=== PATIENT | female | born 1955 | race Caucasian/White ===

== ENCOUNTER 2023-08-07 12:23 | Emergency (ER) | payer MEDICARE, SELFPAY ==
[2023-08-07 12:36] VITALS: BP 171/98
--- NOTE | 2023-08-07 13:49 | ED.MUSCINJ ---
HPI-Injury
General
Chief Complaint: Musculo-Skeletal Complaint
Source: patient
Exam Limitations: none
Time Seen by Provider: 08/07/23 13:17
Nursing documentation reviewed up to this point in time: agreed with
Travel History
Have you had any contact with someone who has COVID-19?: No
Do you have any symptoms of coronavirus? Fever > 100 degrees, chills, cough, shortness of breath, sore throat, loss of taste or smell, muscle aches, or headache?: No
History of Present Illness-Injury
Is this injury a work related problem?: No
Is pt an associate of [facility]?: No
Initial Injury comments:
Patient states she fell approx 5ft off a ladder while powerwashing. Fell into her garden. Reports twisting and landing wrong on RLE. Unable to get self up. Unable to put weight on her RLE. Pain to right knee. Injury occurred yesterday. Brought
to ED by spouse for eval.
Past History
Past History
ED Past Medical History: GERD and Psychiatric (Anxiety)
ED Past Surgical History: Gynecological (Hysterectomy) and Tonsilectomy
Social History
Tobacco: Non-smoker
Alcohol: None
Personal:
Living: with family
Employment: Employed
Family History
Family History: Other (father with CHF); Negative Early CAD
Review of Systems
Review of Systems
Allergies reviewed?: Yes
All Other Systems: ROS reviewed and negative except as documented in HPI and ROS
Constitutional: Reports no symptoms
Musculoskeletal: Reports joint pain (Pain and swelling to right knee)
Skin: Reports no symptoms
Neurological: Reports no symptoms
Psychiatric: Reports no symptoms
Musculoskeletal Injury Exam
Musculoskeletal Injury Exam
Right Knee:
Pain with Movement?: Moderate
Tender to palpation?: Moderate
Soft tissue swelling?: Moderate
External deformity and angulation?: None
Joint effusion?: None
Contusion?: None
Hematoma-local bleeding into tissue?: None
Strain- Sprain- Tear (Connective tissue injury)?: Moderate
Crepitus with movement?: No
Joint instability?: No
Malalignment/deformity?: No
Range of motion: Limited
Distal skin color and temperature: normal-warm & good color
Capillary Refill: normal
Normal distal neurovascular exam?: Yes
Phy Exam
General Physical Exam
General Presentation: well appearing and no apparent distress
General age: appears stated age
General Skin: warm and dry
General Habitus: normal
General Mental: alert
General Hydration: appears well hydrated
Musculoskeletal Exam
Musculoskeletal Exam: neuro vasc intact and other (Pain and swelling to right knee. No evidence of tendon injury. No pain to joints above and below knee.)
Skin Exam
Skin Exam: normal color, warm/dry and no rash
Psychiatric Exam
Psychiatric Exam: normal mood/affect
Injury Course
Orders/Labs/Results
Orders:
Orders
08/07/23 12:39
Knee, Right 4 or More Views [CR Knee- Right 4 Or More View*] Urgent
Comment:
Reason For Exam: pain
08/07/23 13:46
Knee Immobilizer Right-Treatme ONCE
*Radiology
Radiology exam reviewed: preliminary read by ED provider (No fx)
*Critical Care Note
Total Time (30-74mins, 75-104mins- exclusive of procedures): Not Applicable
ED Attending Note
-
Portions of this chart may have been created with voice recognition software.� Occasional wrong word or��sound alike� substitutions may have occurred due to the inherent limitations of voice recognition software.
Discharge Plan
Departure
Patient Disposition: Home (Routine Discharge)
Date of Disposition: 08/07/23
Time of Disposition: 13:47
Patient with high blood pressure during this ER visit?: No
Condition: Good
Covid-19: Not Applicable
Discharge Problem:
Knee sprain
Instructions: How to Use Crutches, Knee Immobilizer (DC), Knee Sprain (DC), Ibuprofen, Using Cold for Pain
Prescriptions:
No Action
multivitamin [Daily Multiple] 1 EACH tablet
1 ea PO DAILY
paroxetine HCl 20 MG tablet
20 mg PO HS
lorazepam [Ativan] 1 MG tablet
1 mg PO PRN (Reason: as needed)
red yeast rice 600 MG capsule
600 mg PO DAILY
Coq-10
DAILY
Vitamin D
DAILY
Referrals:
Stefano Gómez DO [Active] - Call in 1-3 days for appt
Gayla Pringle MD [Family Provider] -
Interventions
Interventions:
*Risk Screen - Suicide Last Done: 08/07/23 12:36
*General Assessment Last Done: 08/07/23 12:36
*Neglect/Abuse Screening Last Done: 08/07/23 12:36
*ED COVID-19 Vaccine History Last Done: 08/07/23 12:36
Discharge Date and Time
Print Language: CROATIAN
[2023-08-07] MEDS: MOTRIN 600 MG PO (14:14)
== END 2023-08-07 14:39 | disposition home or self-care (01) ==
LOC: EMR 12:23
PROVIDERS: EMERGENCY PHYSICIAN Emergency Medicine; FAMILY PHYSICIAN Internal Medicine
DX: S83.91XA Sprain of unspecified site of right knee, initial encounter (principal); W11.XXXA Fall on and from ladder, initial encounter
CPT/HCPCS: 99283; 29505; 73564

== ENCOUNTER → 2023-09-04 11:32 | Outpatient (REF) | payer MEDICARE, SELFPAY | LOC: MRI 3T 11:32 | PROVIDERS: ATTENDING PHYSICIAN Physician Assistant Surgical; FAMILY PHYSICIAN Internal Medicine; REFERRING PHYSICIAN Chiropractor | DX: M23.91 Unspecified internal derangement of right knee (principal) | CPT/HCPCS: 73721 ==